=== PATIENT | male | born 1965 | race Caucasian/White ===

== ENCOUNTER 2023-04-14 06:49 | Emergency (ER) | payer OTHER ==
[2023-04-14] MEDS ORDERED: Sodium Chloride 0.9% 10 ML Syringe FLUSH PRN (08:04)
[2023-04-14] MEDS ORDERED: Azithromycin 250 MG Tab PO ONE (08:04)
[2023-04-14] MEDS ORDERED: Dicyclomine 10 MG Cap PO ONE (08:05)
[2023-04-14] MEDS ORDERED: Prochlorperazine 10 MG/2 ML SDV IVPUSH ONE (08:06)
[2023-04-14] MEDS ORDERED: Lactated Ringers 1,000 ML IV ONE (08:06)
[2023-04-14 08:25] LABS: HEMOGLOBIN 14.6 g/dL (12.9-16.9); MEAN CORPUSCULAR HEMOGLOBIN 31.6 pg (31.6-35.5); MEAN CORPUSCULAR HGB CONC 34.8 g/dL (31.6-35.5); MEAN CORPUSCULAR VOLUME 90.9 fL (81.4-99.0); PLATELET COUNT,PLT 168 K/uL (130-375); RED BLOOD CELL COUNT 4.62 M/uL (4.14-5.76)
[2023-04-14 08:42] LABS: CALCIUM 8.2 mg/dL (8.5-10.1); CREATININE 1.3 mg/dL (0.8-1.3); EST CRCL DRUG DOSING (CG) 57.2 mL/min
[2023-04-14 08:46] LABS: ATYPICAL LYMPHOCYTES FEW
[2023-04-14 08:53] LABS: BAND ABSOLUTE MAN 0.35 K/uL; BAND PERCENT MAN 7 % (5-11); LYMPHOCYTES ABSOLUTE MAN 0.85 K/uL (0.8-3.3); LYMPHOCYTES PERCENT MAN 17 % (24-44); MONOCYTES PERCENT MAN 10 % (2-6); SEG NEUTROPHILS PERCENT MAN 66 % (36-66)
== END 2023-04-14 10:11 | disposition home or self-care (01) ==
LOC: JP.ED 06:49
DX: R19.7 Diarrhea, unspecified (principal); E86.0 Dehydration; E78.00 Pure hypercholesterolemia, unspecified; I10 Essential (primary) hypertension; E03.9 Hypothyroidism, unspecified; Z79.899 Other long term (current) drug therapy; Z79.82 Long term (current) use of aspirin; Z88.0 Allergy status to penicillin
CPT/HCPCS: 36415; 80048; 85025; 96361; 96374; 99284; A9270; J0780; J3490; J7120